=== PATIENT | male | born 1995 | race Caucasian/White ===

== ENCOUNTER 2023-11-14 | Emergency (ER) | payer SELFPAY ==
[2023-11-14 00:21] VITALS: BP 128/72; BMI 30.7
[2023-11-14 00:24] VITALS: PULSE 82; RESP 18; TEMP 98.8
[2023-11-14] MEDS ORDERED: LIDOCAINE 5% TOPICAL PATCH ONE (00:36)
[2023-11-14] MEDS ORDERED: KETOROLAC TROMETHAMINE 60 MG/2 ML VIAL ONE (00:36)
[2023-11-14] MEDS: KETOROLAC TROMETHAMINE 60 MG/2 ML VIAL IM ONE (00:39)
[2023-11-14] MEDS: LIDOCAINE HCL 5% TOP OINTMENT 50 GM TUBE TP ONE (00:39)
== END 2023-11-14 01:18 | disposition home or self-care (01) ==
LOC: FER
PROC: 3E0233Z Introduction of Anti-inflammatory into Muscle, Percutaneous Approach (ICD-10-PCS; principal; 2023-11-14)
DX: M54.50 Low back pain, unspecified (principal); G89.29 Other chronic pain
CPT/HCPCS: 99284-25